=== PATIENT | male | born 1995 | race African-American/Black ===

== ENCOUNTER 2018-02-16 09:46 | Emergency (ER) | payer OTHER ==
--- NOTE | 2018-02-16 10:18 | EDM.PDOC ---
ED HPI GENERAL MEDICAL PROBLEM - General Chief Complaint: Lower Extremity Injury/Pain Stated Complaint: [id number] TWISTED ANKLE Time Seen by Provider: 02/16/18 10:14 Source of Information: Reports: Patient, RN History Limitations: Reports: No Limitations - History of Present Illness INITIAL COMMENTS - FREE TEXT/NARRATIVE: C/O Rt ankle pain sustained today while playing soccer. Denies any other injury. No prior Hx of Rt ankle injury or fx. Onset: Today Duration: Constant Location: Reports: Lower Extremity, Right Quality: Reports: Ache Severity: Moderate Improves with: Reports: Immobilization Worsens with: Reports: Other (wt bearing), Movement Associated Symptoms: Reports: No Other Symptoms Right Ankle Pain Score (Numeric/FACES): 8 - Related Data Allergies Allergy/AdvReac Type Severity Reaction Status Date / Time No Known Allergies Allergy Verified 02/16/18 09:53 Home Meds: Home Meds . [No Known Home Meds] 02/16/18 [History] Past Medical History - Past Health History Medical/Surgical History: Denies Medical/Surgical History Social & Family History - Family History Family Medical History: Noncontributory - Tobacco Use Smoking Status *Q: Never Smoker Second Hand Smoke Exposure: No - Caffeine Use Caffeine Use: Reports: None - Recreational Drug Use Recreational Drug Use: No - Living Situation & Occupation Occupation: Student Review of Systems - Review of Systems Review Of Systems: ROS reveals no pertinent complaints other than HPI. ED EXAM, GENERAL - Physical Exam Exam: See Below Exam Limited By: No Limitations General Appearance: Alert, WD/WN, No Apparent Distress Head: Atraumatic, Normocephalic Respiratory/Chest: No Respiratory Distress Peripheral Pulses: 3+: Posterior Tibial (L), Posterior Tibial (R), Dorsalis Pedis (L), Dorsalis Pedis (R) Extremities: No Pedal Edema, Normal Capillary Refill, Joint Swelling (Rt lateral ankle), Limited Range of Motion (Rt ankle), Other (Rt ankle tender laterally with faint bruising, skin intact.) Neurological: Alert, Oriented, CN II-XII Intact, Normal Cognition, No Motor/ Sensory Deficits Psychiatric: Normal Mood Skin Exam: Warm, Dry, Intact Course - Vital Signs Last Recorded V/S: Last Vital Signs Temp 36.7 C 02/16/18 09:53 Pulse 68 02/16/18 09:53 Resp 16 02/16/18 09:53 BP 140/77 02/16/18 09:53 Pulse Ox 100 02/16/18 09:53 - Orders/Labs/Meds Orders: Active Orders 24 hr Category Date Time Status DME for Discharge [COMM] Routine Oth 02/16/18 10:44 Ordered Meds: Medications Discontinued Medications Generic Name Dose Route Start Last Admin Trade Name Manpreet PRN Reason Stop Dose Admin Ibuprofen 600 mg 02/16/18 10:44 Motrin PO 02/16/18 10:45 ONETIME ONE - Radiology Interpretation Free Text/Narrative:: Xray Rt ankle: no fracture, see Rad. report. - Re-Assessments/Exams Free Text/Narrative Re-Assessment/Exam: 02/16/18 Pt has an appropriate store bought ankle brace. Departure - Departure Time of Disposition: 10:45 Disposition: Home, Self-Care 01 Condition: Good Clinical Impression: Ankle sprain Qualifiers: Encounter type: initial encounter Involved ligament of ankle: unspecified ligament Laterality: right Qualified Code(s): S93.401A - Sprain of unspecified ligament of right ankle, initial encounter - Discharge Information Instructions: Ankle Sprain, [id number] Forms: ED Department Discharge Additional Instructions: Rest, ice pack, and elevate right ankle to reduce pain and swelling. Use ankle brace and crutches as needed for 5 to 7 days. Follow up in clinic for recheck in 10 days if not improved. - My Orders Last 24 Hours: My Active Orders 02/16/18 10:44 DME for Discharge [COMM] Routine - Assessment/Plan Last 24 Hours: My Active Orders 02/16/18 10:44 DME for Discharge [COMM] Routine
--- NOTE | 2018-02-16 10:27 | CR ---
Clinical history: 22-year-old male painful right ankle (twisted playing soccer). Interpretation: Mild bimalleolar soft tissue swelling without sign of underlying fracture or disrupti on of the tibiotalar mortise ankle joint. (Tiny os subtibiale). No heel spurs. (Small bone fragment with sclerosis dorsal aspect of the talonavicular bone) No foreign bodies. CONCLUSION: No acute fracture.
[2018-02-16] MEDS ORDERED: Ibuprofen 600 MG Tab PO ONE (10:44)
== END 2018-02-16 10:53 | disposition home or self-care (01) ==
LOC: EDBD → DL.ED 09:46 → EEVIPCON 09:46 → DL.ED 10:53
DX: S93.401A Sprain of unspecified ligament of right ankle, initial encounter (principal); X58.XXXA Exposure to other specified factors, initial encounter; Y93.66 Activity, soccer
CPT/HCPCS: 73610-RT; 99283